=== PATIENT | female | born 1935 | race American Indian/Alaskan Native ===

== ENCOUNTER 2018-05-15 19:23 | Emergency (ER) | payer MEDICARE, MEDICAID ==
--- NOTE | 2018-05-15 19:34 | C.PDOC ---
History Of Present Illness 82 year old female with PMHx of polio, numerous hip surgeries presents to the ED for evaluation. Patient tripped at home and hurt her right hip and back. Patient walks with a cane. Patient remembers the event, states her pain is dull , aching, throbbing 4/10 discomfort. Patient denies visual changes, LOC, nausea , vomit, dizziness, weakness, numbness. Time Seen by Provider: 05/15/18 19:33 Chief Complaint (Nursing): Lower Extremity Problem/Injury History Per: Patient History/Exam Limitations: no limitations Onset/Duration Of Symptoms: Hrs Current Symptoms Are (Timing): Still Present Severity: Mild Pain Scale Rating Of: 4 Recent travel outside of the [place]: No Additional History Per: Patient - Hip Description Of Injury: Fell Past Medical History Reviewed: Historical Data, Nursing Documentation, Vital Signs Vital Signs: Last Vital Signs Temp 98 F 05/15/18 19:32 Pulse 72 05/15/18 20:00 Resp 16 05/15/18 20:00 BP 115/69 05/15/18 20:00 Pulse Ox 100 05/15/18 21:30 - Medical History PMH: Arthritis, HTN Denies: Chronic Kidney Disease Surgical History: No Surg Hx - [facility] Procedures ESOPHAGOGASTRODUODENOSCOPY [EGD] W/CLOSED BIOPSY (01/08/14) EXPLORATORY LAPAROTOMY (11/25/14) ING HERNIA REP-GRAFT NOS (02/06/14) UNIL FEMOR HRN REP-GRFT (11/25/14) Family History: States: Unknown Family Hx - Social History Hx Tobacco Use: No Hx Alcohol Use: No Hx Substance Use: No - Immunization History Hx Tetanus Toxoid Vaccination: No Hx Influenza Vaccination: No Hx Pneumococcal Vaccination: No Review Of Systems Constitutional: Negative for: Fever, Chills Eyes: Negative for: Vision Change Cardiovascular: Negative for: Chest Pain Respiratory: Negative for: Shortness of Breath Gastrointestinal: Negative for: Nausea, Vomiting Musculoskeletal: Positive for: Back Pain, Leg Pain Skin: Negative for: Rash Neurological: Negative for: Weakness, Numbness, Headache, Dizziness Physical Exam - Physical Exam Appears: Non-toxic Skin: Warm, Dry Head: Normacephalic Eye(s): bilateral: Normal Inspection Neck: Supple Chest: Symmetrical Cardiovascular: Rhythm Regular Respiratory: No Rales, No Rhonchi, No Wheezing Gastrointestinal/Abdominal: Soft, No Tenderness, No Guarding, No Rebound Back: No Vertebral Tenderness Extremity: No Tenderness, Capillary Refill (< 2 seconds), No Swelling Extremity: Right: Other (right hip deformities with numerous surgical scars, chronic. No crepitus palpated), Bilateral: Normal Color And Temperature Pulses: Left Dorsalis Pedis: Normal, Right Dorsalis Pedis: Normal Neurological/Psych: Oriented x3, Normal Speech Gait: With Assistance (cane) ED Course And Treatment - Laboratory Results Result Diagrams: 05/15/18 19:52 05/15/18 19:52 ECG: Interpreted By Me, Viewed By Me ECG Rhythm: Sinus Rhythm (65), Nonspecific Changes O2 Sat by Pulse Oximetry: 100 (ON RA) Pulse Ox Interpretation: Normal Progress Note: Plan: - LS spine CT. - Pelvis CT. - Labs. - Morphine 1 mg IV. - IV fluids Reevaluation Time: 21:44 Reassessment Condition: Improved Disposition Counseled Patient/Family Regarding: Studies Performed, Diagnosis, Need For Followup - Disposition Referrals: [facility] [Outside] [facility] [Outside] Disposition: HOME/ ROUTINE Disposition Time: 19:34 Condition: FAIR Additional Instructions: Please follow up with your doctor. take tylenol or motrin for pain Instructions: Contusion (DC), Hip Pain (DC) Forms: [facility] (Haitian) - Clinical Impression Clinical Impression: Fall, Contusion of hip, right - Scribe Statement The provider has reviewed the documentation as recorded by the Scribe Omar Grace All medical record entries made by the Scribe were at my direction and personally dictated by me. I have reviewed the chart and agree that the record accurately reflects my personal performance of the history, physical exam, medical decision making, and the department course for this patient. I have also personally directed, reviewed, and agree with the discharge instructions and disposition.
[2018-05-15] MEDS ORDERED: Morphine 4 MG/ML VIAL IV ONE ×2 (19:41→21:20)
[2018-05-15 19:45] VITALS: RESP 16; TEMP 98
[2018-05-15] MEDS ORDERED: Sodium Chloride 0.9% 1,000 ML IV SCH (19:45)
[2018-05-15 19:59] LABS: EOS # 0.2 K/uL (0.0-0.7); EOS % 3.6 % (0.0-4.0); HEMOGLOBIN 12.6 g/dL (11.0-16.0); LYMPH # 1.1 K/uL (1.0-4.3); LYMPH % 24.7 % (20.0-40.0); MEAN CELL VOLUME 90.6 fL (81.0-99.0); MEAN CORPUSCULAR HEMOGLOBIN 30.5 pg (27.0-31.0); MEAN CORPUSCULAR HGB CONC 33.7 g/dL (33.0-37.0); MEAN PLATELET VOLUME 8.2 fL (7.2-11.7); MONO # 0.4 K/uL (0.0-0.8); MONO % 9.9 % (0.0-10.0); NEUT # 2.6 K/uL (1.8-7.0); NEUT % 60.8 % (50.0-75.0); NRBC % 0.1 % (0.0-2.0); RBC 4.11 Mil/uL (3.80-5.20); RED CELL DISTRIBUTION WIDTH 14.3 % (11.5-14.5); WHITE BLOOD COUNT 4.3 K/uL (4.8-10.8)
[2018-05-15 20:05] LABS: INR 1.1; PROTHROMBIN TIME 12.2 SECONDS (9.7-12.2)
[2018-05-15 20:11] LABS: ALB/GLOB RATIO 1.1 (1.0-2.1); ALBUMIN 3.9 g/dL (3.5-5.0); ALT/SGPT 26 U/L (9-52); AST/SGOT 24 U/L (14-36); BLOOD UREA NITROGEN 12 mg/dL (7-17); GFR NON-AFRICAN AMERICAN > 60
[2018-05-15 22:06] VITALS: BP 116/65; PULSE 78; O2SAT 98
--- NOTE | 2018-05-16 11:37 | CT ---
Date of service: 05/15/2018 PROCEDURE: CT Lumbar Spine without contrast HISTORY: Fall COMPARISON: None available. TECHNIQUE: Axial computed tomography images were obtained of the lumbar spine without the use of intravenous contrast. Coronal and sagittal reformatted images were created and reviewed. Radiation dose: Total exam DLP = 355.39 mGy-cm. This CT exam was performed using one or more of the following dose reduction techniques: Automated exposure control, adjustment of the mA and/or kV according to patient size, and/or use of iterative reconstruction technique. FINDINGS: VERTEBRAE: There is moderate levoscoliosis in the lumbar spine. There is normal alignment of the lumbar vertebral bodies. There is normal lumbar lordosis. There is no acute fracture or spondylolysis. There is diffuse bone demineralization. DISCS/SPINAL CANAL/NEURAL FORAMINA: There is multilevel degenerative disc disease with desiccation of T12-L1, L1-2 and L2-3 discs. There is multilevel facet arthropathy in the lower lumbar spine. PARASPINAL SOFT TISSUES: Paraspinous soft tissues are normal. OTHER FINDINGS: Incompletely imaged are presumable cysts in the kidneys. There is sigmoid diverticulosis without CT evidence for acute diverticulitis. IMPRESSION: No acute fracture. A preliminary report was provided by [employer] [facility].
--- NOTE | 2018-05-16 15:14 | CT ---
Date of service: 05/15/2018 PROCEDURE: CT pelvis HISTORY: fall, att right hip COMPARISON: CT abdomen/ pelvis 03/22/2015 TECHNIQUE: 2.5 mm contiguous axial sections were acquired through the pelvis. Sagittal and coronal images were reformatted from the axial scan. Total exam DLP: 248.93 mGy-cm This CT exam was performed using 1 or more of the following dose reduction techniques: Automated exposure control, adjustment of the mA and/or kV according to patient size, and/or use of iterative reconstruction technique. FINDINGS: There is no acute fracture. There is ankylosis of the left hip. This is long-standing and unchanged in appearance when compared to examination of 2014. There is severe osteoarthritis of the right hip. There is remodeling of the right acetabulum and of the right femoral head. There is chronic cephalad subluxation of the right femoral head. There is degenerative arthritis of the left sacroiliac joint with a vacuum phenomenon. There are degenerative changes noted at the symphysis pubis. There is levoscoliosis of the lumbar spine. There is a stable 3.2 cm right upper pole renal cortical cyst. There is partial inclusion of a left upper pole renal cyst at least 3.1 cm. There is a stable left lower pole renal cyst, measuring 1.5 cm. There is suspected prolapsed atrophic uterus. Please correlate with direct visual inspection. There is diverticulosis of the descending colon and splenic flexure. IMPRESSION: No acute fracture. 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 Chronic cephalad subluxation of right femoral head. Degenerative arthritis of left sacroiliac joint. Bilateral renal cysts. Suspected prolapsed uterus. Correlate with direct visual inspection.
--- NOTE | 2018-05-16 18:58 | CARD ---
APPROVED REPORT Date of service: 05/15/2018 EKG Measurement Heart [id number] <Conclusion> Sinus rhythm with premature atrial complexes Minimal voltage criteria for LVH, may be normal variant Inferior infarct, age undetermined Abnormal ECG
== END 2018-05-15 22:06 | disposition home or self-care (01) ==
LOC: C.ER 19:23
DX: S70.01XA Contusion of right hip, initial encounter (principal); W01.0XXA Fall on same level from slipping, tripping and stumbling without subsequent striking against object, initial encounter
CPT/HCPCS: 72131; 72192; 80053; 85025; 85610; 85730; 93005; 96374; 96375; 96376; 99284; J1885; J2270; J7030